=== PATIENT | female | born 2000 | race Caucasian/White ===

== ENCOUNTER 2019-04-20 23:35 | Inpatient (IN) | payer OTHER ==
[2019-04-21] MEDS: DEXTROSE 5%-LACTATED RINGERS 1,000 ML IV SCH (00:30)
[2019-04-21] MEDS ORDERED: BUTORPHANOL TARTRATE 1 MG/ML VIAL IVPUSH ONE (00:34)
[2019-04-21] MEDS ORDERED: PROMETHAZINE HCL 25 MG/1 ML VIAL IVPUSH ONE (00:34)
[2019-04-21] MEDS ORDERED: OXYTOCIN 20 UNITS in 0.9% NS 20 UNIT/1,000 ML INFUS.BAG IV ONE ×2 (00:35→04:03)
[2019-04-21] MEDS ORDERED: LIDOCAINE HCL 1% PRESERVATIVE FREE - 30ML VIAL ONE (00:36)
--- NOTE | 2019-04-21 00:39 | PN ---
Progress Note (short form) - Note Progress Note: cx 9 cm 80 vx -1 arom, clear ,fhr cat 1, regular contraction, wants pain meds
--- NOTE | 2019-04-21 00:44 | HP ---
Past Medical History - Primary Care Physician PCP:: Cy Griffith - Admission Chief Complaint: 39 weeks , labor History of Present Illness: 18 yo f 39 weeks in labor, cx 9 cm 100 vx -1 membrane bulging, fhr cat 1 , regular contration History Source: Patient Limitations to Obtaining History: Language Barrier - Past Medical History ...: 1 ...Para: 0 - Past Surgical History Hx Myomectomy: No Hx Transabdominal Cerclage: No - Smoking History Have you smoked in the past 12 months: No - Alcohol/Substance Use Hx Alcohol Use: No - Social History History of Recent Travel: No Home Medications - Allergies Allergies/Adverse Reactions: Allergies Allergy/AdvReac Type Severity Reaction Status Date / Time Penicillins Allergy Severe Difficulty Verified 04/21/19 00:37 Breathing Review of Systems - Review of Systems Constitutional: reports: No Symptoms Eyes: reports: No Symptoms HENT: reports: No Symptoms Neck: reports: No Symptoms Cardiovascular: reports: No Symptoms Respiratory: reports: No Symptoms Gastrointestinal: reports: No Symptoms Genitourinary: reports: No Symptoms Breasts: reports: No Symptoms Reported Musculoskeletal: reports: No Symptoms Integumentary: reports: No Symptoms Neurological: reports: No Symptoms Hematology/Lymphatic: reports: No Symptoms Psychiatric: reports: No Symptoms Physical Exam - Maternity Constitutional: Yes: Well Nourished, No Distress, Calm Eyes: Yes: WNL, Conjunctiva Clear, EOM Intact HENT: Yes: WNL, Atraumatic, Normocephalic Neck: Yes: WNL, Supple, Trachea Midline Cardiovascular: Yes: WNL, Regular Rate and Rhythm Breast(s): Yes: WNL - Abdominal Exam/OB Fundal Height: 38 Number of Fetuses: Single Presentation: Vertex Contractions: Yes Intensity: Mod/Strong Monitor Mode: External Heart Rate Location: [facility] Category: I Accelerations: Non-Uniform Decelerations: None - Vaginal Exam/OB Vaginal Bleediing: Bloody Show Speculum Exam: No Dilatation (cm): 9 cm Effacement (%): 80 Presentation: Vertex/Position Station: -1 - Physical Exam Musculoskeletal: Yes: WNL Extremities: Yes: WNL Edema: Yes Edema: LLE: Trace, RLE: Trace Deep Tendon Reflex Grade: Normal +2 ...Motor Strength: WNL Psychiatric: Yes: WNL Hemorrhage Risk Assessment - Risk Factors Medium Risk Factors: Yes: None High Risk Factors: Yes: None Risk Score: 1 Risk Level: Medium Risk Problem List - Problems (1) with 39 completed weeks gestation Code(s): Z3A.39 - 39 WEEKS GESTATION OF (2) with 39 completed weeks gestation Code(s): Z3A.39 - 39 WEEKS GESTATION OF (3) Labor established Code(s): LWD3077 - Assessment/Plan admit, fhm pain management
[2019-04-21 01:02] LABS: BASO % 0.1 % (0-2.0); EOS % 0.1 % (0-4.5); HEMATOCRIT 42.8 % (32.4-45.2); HEMOGLOBIN 13.7 GM/dL (10.7-15.3); LYMPH % 12.3 % (8-40); MEAN CELL VOLUME 87.4 fl (80-96); MEAN PLT VOLUME 10.4 fl (7.5-11.1); MONO % 4.5 % (3.8-10.2); PLATELET COUNT 189 K/MM3 (134-434); RDW 22.8 % (11.6-15.6); WHITE BLOOD COUNT 13.5 K/mm3 (4.0-10.0)
[2019-04-21 01:19] LABS: INR 0.96 (0.83-1.09); PROTHROMBIN TIME (PATIENT) 11.3 SEC (9.7-13.0)
[2019-04-21 01:22] LABS: ACTIVATED PTT 32.9 SECONDS (25.2-36.5)
[2019-04-21 01:28] LABS: BLOOD UREA NITROGEN 6.7 mg/dL (7-18); CALCIUM 9.2 mg/dL (8.5-10.1); CREATININE 0.4 mg/dL (0.55-1.3); POTASSIUM 3.9 mmol/L (3.5-5.1)
[2019-04-21 01:29] VITALS: BMI 26.2
[2019-04-21] MEDS: OXYTOCIN 20 UNITS in 0.9% NS 20 UNIT/1,000 ML INFUS.BAG IV SCH (02:25)
[2019-04-21] MEDS ORDERED: METHYLERGONOVINE MALEATE 0.2 MG/1 ML AMP IM PRN (02:47)
[2019-04-21] MEDS ORDERED: BENZOCAINE 28 GM HEMORRHOIDAL OINTMENT TP PRN (02:47)
[2019-04-21] MEDS ORDERED: BISACODYL 10 MG SUPP.RECT RC PRN (02:47)
[2019-04-21] MEDS ORDERED: BENZOCAINE 20% 57 GM BOTTLE TP PRN (02:47)
[2019-04-21] MEDS ORDERED: WITCH HAZEL 50% (TUCKS) 40 PAD/JAR PAD TP PRN (02:47)
[2019-04-21 04:54] LABS: COCAINE, UR NEGATIVE ng/ml (CUTOFF=300); METHADONE, UR NEGATIVE ng/ml (CUTOFF=300); OPIATES, URI NEGATIVE ng/ml (CUTOFF=300); PHENCYCLIDINE,URINE NEGATIVE ng/ml (CUTOFF=25); URINE AMPHETAMINES NEGATIVE ng/ml (CUTOFF=500); URINE BARBITURATES NEGATIVE ng/ml (CUTOFF=200); URINE BENZODIAZEPINES NEGATIVE ng/ml (CUTOFF=200)
[2019-04-21] MEDS: ACETAMINOPHEN 325 MG TABLET (FP) PO PRN ×3 (05:39→21:23)
[2019-04-21] MEDS: IBUPROFEN 600 MG TABLET (FP) PO PRN ×3 (05:39→21:22)
[2019-04-21 09:16] LABS: EPI CELLS 3.5 /HPF (0-5/HPF); URINE BACTERIA 5.7 /hpf (NEGATIVE); URINE WBC 4 /hpf (0-5)
[2019-04-21 09:21] LABS: URINE UROBILINOGEN 0.2 mg/dL (0.2-1.0)
[2019-04-21 09:27] LABS: URINE APPEARANCE Clear; URINE COLOR Yellow
[2019-04-21 09:28] LABS: URINE BILIRUBIN Negative (NEGATIVE); URINE GLUCOSE (UA) Negative (NEGATIVE); URINE KETONE 4+ (NEGATIVE); URINE PROTEIN Trace (NEGATIVE)
[2019-04-21 09:29] LABS: URINE LEUK ESTERASE Negative (NEGATIVE); URINE NITRITE Negative (NEGATIVE)
[2019-04-21 10:08] LABS: HYALINE CASTS 0-2 /lpf (0-8)
[2019-04-21] MEDS: FERROUS SO4 325 MG TABLET (FP) PO SCH ×2 (10:24→21:22)
[2019-04-21] MEDS: PRENATAL VITAMINS W/ FOLIC ACID TABLET (FP) PO SCH (10:24)
--- NOTE | 2019-04-21 10:41 | PN ---
Delivery - Delivery Vaginal Delivery: Spontaneous (head delivered , ant. and post. shoulder with no difficulty . 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
--- NOTE | 2019-04-22 06:43 | PN ---
Progress Note (short form) - Note Progress Note: ppd 1 doing well, no c/o, voids ok, no excess vaginal bleeding Last Vital Signs Temp Pulse Resp BP Pulse Ox 98.4 F 79 20 115/71 04/21/19 22:00 04/21/19 22:00 04/21/19 22:00 04/21/19 22:00 abdomen soft, uterus firm, non tender lochia mild no calf tenderness plan ambulate , cbc for d/c home in am Problem List - Problems (1) with 39 completed weeks gestation Code(s): Z3A.39 - 39 WEEKS GESTATION OF (2) with 39 completed weeks gestation Code(s): Z3A.39 - 39 WEEKS GESTATION OF (3) Labor established Code(s): LWD4617 -
[2019-04-22] MEDS: IBUPROFEN 600 MG TABLET (FP) PO PRN ×2 (07:34→19:38)
[2019-04-22] MEDS: ACETAMINOPHEN 325 MG TABLET (FP) PO PRN ×2 (07:35→19:39)
[2019-04-22 08:00] LABS: BASO % 0.5 % (0-2.0); EOS % 0.6 % (0-4.5); HEMATOCRIT 33.2 % (32.4-45.2); HEMOGLOBIN 10.7 GM/dL (10.7-15.3); LYMPH % 26.6 % (8-40); MCH 28.4 pg (25.7-33.7); MCHC 32.2 g/dl (32.0-36.0); MEAN CELL VOLUME 88.2 fl (80-96); MEAN PLT VOLUME 10.1 fl (7.5-11.1); MONO % 8.1 % (3.8-10.2); NEUT % 64.2 % (42.8-82.8); PLATELET COUNT 160 K/MM3 (134-434); RBC 3.76 M/mm3 (3.60-5.2); RDW 23.6 % (11.6-15.6); WHITE BLOOD COUNT 11.1 K/mm3 (4.0-10.0)
[2019-04-22] MEDS: FERROUS SO4 325 MG TABLET (FP) PO SCH ×2 (09:39→21:00)
[2019-04-22] MEDS: PRENATAL VITAMINS W/ FOLIC ACID TABLET (FP) PO SCH (09:39)
[2019-04-22] MEDS: DEXTROSE 5%-LACTATED RINGERS 1,000 ML IV SCH (19:35)
[2019-04-22] MEDS: OXYTOCIN 20 UNITS in 0.9% NS 20 UNIT/1,000 ML INFUS.BAG IV SCH (19:35)
[2019-04-22 20:55] VITALS: TEMP 98
[2019-04-22] MEDS ORDERED: SENNOSIDES/DOCUSATE COMBO (SENNA PLUS) TABLET (UD) PO PRN (22:00)
[2019-04-23] MEDS: IBUPROFEN 600 MG TABLET (FP) PO PRN (06:44)
[2019-04-23] MEDS: ACETAMINOPHEN 325 MG TABLET (FP) PO PRN (06:45)
[2019-04-23 07:35] VITALS: BP 117/60; PULSE 67
--- NOTE | 2019-04-23 07:41 | DS ---
Physical Examination Vital Signs: Vital Signs Temperature 98.0 F 04/23/19 07:34 Pulse Rate 67 04/23/19 07:34 Respiratory Rate 20 04/23/19 07:34 Blood Pressure 117/60 04/23/19 07:34 O2 Sat by Pulse Oximetry (%) Findings/Remarks: ambulating, breast feeding, tolerating PO, lochia decreased Constitutional: Yes: Calm HENT: Yes: Atraumatic Neck: Yes: Supple Cardiovascular: Yes: Regular Rate and Rhythm Respiratory: Yes: Regular Gastrointestinal: Yes: Soft ...Rectal Exam: Yes: Deferred Breast(s): Yes: Other (deferred) Musculoskeletal: Yes: WNL Extremities: Yes: WNL Edema: LLE: Trace, RLE: Trace Integumentary: Yes: WNL Neurological: Yes: Alert, Oriented ...Motor Strength: WNL Psychiatric: Yes: Alert, Oriented Labs: CBC, BMP 04/22/19 06:24 04/21/19 00:35 Discharge Summary Problems reviewed: Yes Reason For Visit: LABOR ADMIT Current Active Problems Labor established (Acute) with 39 completed weeks gestation (Acute) with 39 completed weeks gestation (Acute) Procedures: Principal: vaginal delivery, uncomplicated Hospital Course: adequate recovery Plan of Treatment: care Condition: Stable - Instructions Diet, Activity, Other Instructions: Please return to regular diet and activity as tolerated. Follow up in 6-8weeks for visit. Referrals: Cy Griffith MD [Staff Physician] - Disposition: HOME
[2019-04-23] MEDS: FERROUS SO4 325 MG TABLET (FP) PO SCH (11:06)
[2019-04-23] MEDS: PRENATAL VITAMINS W/ FOLIC ACID TABLET (FP) PO SCH (11:07)
== END 2019-04-23 13:20 | disposition home or self-care (01) | DRG 560 ==
LOC: JLDR 23:35 → J3W 04-21 05:05
PROVIDERS: ADMIT Obstetrics & Gynecology; ATTEND Obstetrics & Gynecology
PROC: 10E0XZZ Delivery of Products of Conception, External Approach (ICD-10-PCS; principal; 2019-04-21)
PROC: 0KQM0ZZ Repair Perineum Muscle, Open Approach (ICD-10-PCS; 2019-04-21)
DX: O70.1 Second degree perineal laceration during delivery (principal); Z3A.39 39 weeks gestation of pregnancy; Z37.0 Single live birth
CPT/HCPCS: 36415; 59409; 80048; 80307; 81003; 85025; 85610; 85730; 86593; 86850; 86900; 86901

== ENCOUNTER 2021-08-20 13:33 | Emergency (ER) | payer SELFPAY ==
[2021-08-20 13:40] VITALS: BP 136/75; PULSE 77; TEMP 97.9; BMI 26.2
[2021-08-20] MEDS ORDERED: KETOROLAC TROMETHAMINE 30 MG/1 ML VIAL IM ONE (14:52)
[2021-08-20] MEDS ORDERED: KETOROLAC TROMETHAMINE 30 MG/1 ML VIAL ONE (14:59)
== END 2021-08-20 15:20 | disposition home or self-care (01) ==
LOC: JERFT 13:33
PROC: 3E023NZ Introduction of Analgesics, Hypnotics, Sedatives into Muscle, Percutaneous Approach (ICD-10-PCS; principal; 2021-08-20)
DX: M54.50 Low back pain, unspecified (principal); M54.6 Pain in thoracic spine
CPT/HCPCS: 72070-TC-FY; 72100-TC-FY; 99284-25

== ENCOUNTER 2021-09-24 14:18 | Emergency (ER) | payer SELFPAY ==
[2021-09-24 14:32] VITALS: BMI 25.0
[2021-09-24] MEDS ORDERED: KETOROLAC TROMETHAMINE 30 MG/1 ML VIAL IM ONE (14:57)
[2021-09-24] MEDS ORDERED: DEXAMETHASONE SOD PHOSPHATE 10 MG/1 ML VIAL ONE (14:57)
[2021-09-24] MEDS ORDERED: KETOROLAC TROMETHAMINE 30 MG/1 ML VIAL ONE (14:57)
[2021-09-24] MEDS ORDERED: DEXAMETHASONE LIQUID 0.5 MG/5 ML PO ONE (14:57)
[2021-09-24] MEDS ORDERED: CLINDAMYCIN 600MG PREMIX IVPB 600 MG/50 ML BAG IVPB ONE (15:06)
[2021-09-24] MEDS ORDERED: SODIUM CHLORIDE 0.9% 500 ML INFUS.BAG IV ONE (15:07)
[2021-09-24] MEDS ORDERED: ACETAMINOPHEN 1000 MG/100 ML BAG IVPB ONE (15:14)
[2021-09-24] MEDS ORDERED: CLINDAMYCIN PHOSPHATE 600 MG/4 ML VIAL ONE (15:29)
[2021-09-24] MEDS ORDERED: ACETAMINOPHEN INJECTION 100 ML IVPB ONE (15:30)
[2021-09-24 17:18] VITALS: TEMP 100
[2021-09-24 18:14] VITALS: BP 98/50; PULSE 60
== END 2021-09-24 19:23 | disposition home or self-care (01) ==
LOC: JER 14:18
PROC: 3E0333Z Introduction of Anti-inflammatory into Peripheral Vein, Percutaneous Approach (ICD-10-PCS; principal; 2021-09-24)
PROC: 3E03329 Introduction of Other Anti-infective into Peripheral Vein, Percutaneous Approach (ICD-10-PCS; 2021-09-24)
PROC: 3E0233Z Introduction of Anti-inflammatory into Muscle, Percutaneous Approach (ICD-10-PCS; 2021-09-24)
DX: R07.0 Pain in throat (principal)
CPT/HCPCS: 87651; 99284-25

== ENCOUNTER 2022-06-16 12:30 | Emergency (ER) | payer SELFPAY ==
[2022-06-16 12:46] VITALS: BP 138/62; PULSE 94; RESP 18; TEMP 99.3; BMI 53.7
[2022-06-16] MEDS ORDERED: IBUPROFEN 600 MG TABLET (FP) PO ONE (13:17)
[2022-06-16] MEDS ORDERED: DEXAMETHASONE 4 MG TABLET (FP) PO ONE (13:17)
== END 2022-06-16 15:57 | disposition home or self-care (01) ==
LOC: JER 12:30
DX: J09.X2 Influenza due to identified novel influenza A virus with other respiratory manifestations (principal)
CPT/HCPCS: 0241U-QW; 87070; 87651; 99283-25